=== PATIENT | male | born 1955 | race Caucasian/White ===

== ENCOUNTER → 2019-03-20 08:01 | Outpatient (CLI) | payer OTHER, SELFPAY ==
[2019-03-20] VITALS (9 sets, daily range): BP systolic 107–126; BP diastolic 46–75; PULSE 50–789; RESP 15–16; TEMP 36.4–37.4; O2SAT 94–100; BMI 19.0
== END ==
PROVIDERS: Referring Provider Internal Medicine Hematology & Oncology; Visit Provider Internal Medicine Hematology & Oncology
DX: D64.81 Anemia due to antineoplastic chemotherapy (principal)
CPT/HCPCS: 36430; 86850; 86900; 86920; 86922; J7040; P9016; A4216

== ENCOUNTER → 2021-01-18 08:20 | Outpatient (CLI) | payer OTHER, SELFPAY ==
[2019-03-20 08:16] VITALS: BMI 19.0
[2021-01-18] VITALS (9 sets, daily range): BP systolic 91–128; BP diastolic 47–62; PULSE 61–94; RESP 16; TEMP 36.3–37; O2SAT 98–100; BMI 20.3
[2021-01-18] MEDS: 0.9% NaCl VAD Flush IV ×2 (08:42→14:04)
[2021-01-18] MEDS: Acetaminophen 325 MG Tablet 650 MG PO (11:54)
== END ==
PROVIDERS: Referring Provider Internal Medicine Hematology & Oncology; Visit Provider Internal Medicine Hematology & Oncology
DX: Z51.89 Encounter for other specified aftercare (principal); D64.81 Anemia due to antineoplastic chemotherapy
CPT/HCPCS: 36430; 86850; 86900; 86901; 86920; 86922; J7040; P9016; A4216